=== PATIENT | female | born 1960 | race Caucasian/White ===

== ENCOUNTER 2022-11-27 14:49 | Outpatient (CLI) | payer BC, SELFPAY ==
--- NOTE | 2022-11-27 15:11 | XR_ITS ---
WS: [id number] Left foot, 3 views, 11/27/2022 Clinical Data: L FOOT PAIN Comparison: None. Findings: No fractures or dislocations are seen. No bone destruction or erosion is noted. There is osteoarthrit ic spurring and narrowing of the left first MTP joint. The soft tissues are normal. 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
== END 2022-11-27 14:50 | disposition home or self-care (01) ==
PROVIDERS: PCP Nurse Practitioner Family; Visit Provider Nurse Practitioner Family
DX: M19.072 Primary osteoarthritis, left ankle and foot (principal)
CPT/HCPCS: 73630

== ENCOUNTER 2023-03-17 13:36 | Emergency (ER) | payer OTHER, SELFPAY ==
[2023-03-17 13:48] VITALS: BP 135/74; PULSE 81; RESP 18; TEMP 36.8; O2SAT 96; BMI 28.3
--- NOTE | 2023-03-17 14:32 | W.ED.BACK ---
HPI - Back Pain/Injury General: Chief Complaint: Back Pain/Injury Stated Complaint: low back pain/ leg numbness Time Seen by Provider: 03/17/23 14:23 Source: patient Mode of arrival: ambulatory Limitations: no limitations History of Present Illness: Patient is a nice 63-year-old female presents to ED today with complaint of lower back pain that she sustained a few months ago while at work after lifting something heavy. Patient states she has had pain since that incident. 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 claim/injury but for what ever reason this never got filed. She tells me she has continued to have pain worse with sitting for long periods of time and lifting. She is here now stating she went to a different central office operator supervisor who filed the claim. He reports sometimes pain travels down the posterior aspect of bilateral lower extremities. Denies saddle anesthesia or bowel or bladder dysfunction. MD elicited complaint: back pain and back injury Onset (ago): month(s) Timing: constant Severity: moderate Similar Symptoms Previously: No Location: lumbar spine Radiation: left leg below the knee and right leg below the knee Exacerbating factors: lifting Relieving factors: none Associated symptoms: Reports no associated symptoms; Deny abdominal pain or difficulty walking Work related injury: Yes Review of Systems Card: Denies: chest pain Resp: Denies: dyspnea GI: Denies: abdominal pain Musc: Reports: back pain; Denies: neck pain, extremity pain, extremity swelling, joint pain or joint swelling Skin/Breast: Denies: rash Neuro: Denies: headache(s), numbness in extremities, weakness in extremities, sensory changes or difficulty walking Physical Exam Const: COMMON NORMALS: no acute distress, average body habitus, patient oriented x3, no limitations, healthy appearing, alert and well nourished GI: COMMON NORMALS: Normal to inspection, nondistended, normoactive bowel sounds present, Soft to palpation and non-tender PALPATION: Yes Soft to palpation : COMMON NORMALS: Yes no CVA tenderness BLADDER/KIDNEY EXAM: Yes no CVA tenderness Back/Pelvis: COMMON NORMALS: no CVA tenderness THORACIC SPINE/UPPER BACK: Yes normal to inspection, Yes thoracic ROM normal, No thoracic spinal tenderness, No paraspinal muscle tenderness and No paraspinal muscle spasm LUMBAR SPINE/LOWER BACK: Yes normal to inspection, Yes lumbar ROM normal, Yes lumbar spinal tenderness, No paraspinal muscle tenderness, No paraspinal muscle spasm and Yes straight leg raise negative bilaterally PELVIS: Yes buttocks normal SACROILIAC JOINTS: Yes SI joints normal SACRUM: no tenderness COCCYX: no tenderness Extremity: COMMON NORMALS: normal to inspection GENERAL: Yes normal exam except as noted Neuro: COMMON NORMALS: patient oriented x3, moves all extremities, no focal motor deficits, no sensory deficits noted and gait normal SENSORIUM/ORIENTATION: Yes alert Course Vital Signs: Vital signs: Vital Signs Temperature 98.2 F 03/17/23 13:48 Pulse Rate 81 03/17/23 15:47 Respiratory Rate 18 03/17/23 15:47 Blood Pressure 135/74 03/17/23 13:48 Pulse Oximetry 97 03/17/23 15:47 Oxygen Delivery Me thod Room Air 03/17/23 13:48 MDM - Back Pain/Injury Medical Decision Making XR negative. Worker's Comp paperwork filed. She can follow up with them for further evaluation/treatment. Nothing emergent today. Discharge Plan Discharge Patient Disposition: Home Clinical Impression: Low back pain Qualifiers: Chronicity: chronic Back pain laterality: midline Sciatica presence: with sciatica Sciatica laterality: bilateral sciatica Qualified Code(s): M54.41 - Lumbago with sciatica, right side Condition: Stable Discharge Orders: Discharge ED (Routine); Ordered 03/17/23 Ordered By: Dorita Oretga Referrals: Alyssia Paiz APN [Primary Care Provider] - Activity Restrictions/Additional Instructions: As we discussed we will have you follow-up with Worker's Comp. for further evaluation. Coding Level of Care Code ED Showroom Sales Assistant for Niru Hester
--- NOTE | 2023-03-17 14:43 | XR_ITS ---
WS: [id number] Exam: XR lumbar spine 2-3V* [id number] Date/Time of Exam: 03/17/2023 3:15 PM Reason For Exam: back injury/pain No fracture or dislocation noted. Facet arthropathy at L4-5 and L5-S1. Disc spaces are relatively wel l-maintained. Remaining posterior elements are intact. Osteopenia. IMPRESSION: 1. Degenerative change and osteopenia. 2. No fracture or malalignment.
[2023-03-17 15:47] VITALS: PULSE 81; RESP 18; O2SAT 97
== END 2023-03-17 15:49 | disposition home or self-care (01) ==
PROVIDERS: Emergency Provider Physician Assistant; PCP Nurse Practitioner Family
DX: M54.41 Lumbago with sciatica, right side (principal)
CPT/HCPCS: 72100; 99283

== ENCOUNTER 2025-07-07 12:38 | Emergency (ER) | payer OTHER, SELFPAY ==
--- OUTSIDE RECORDS SUMMARY | 2025-04-18 03:30 | XMS_ITS ---
Author Organization [facility] Address [address] [place] [address] Care Team Providers Care Sandwich Machine Operator Name Role Phone Nain Paiz Primary Care Provider Jr Snell [phone] NAIN PAIZ Unavailable Unavailable Encounters Encounter Location Date Provider Diagnosis [facility] [address] [address] 04/18/2025 Jr Snell Plan Of Treatment Next Appt Details Provider Name:Nain Paiz, 07/17/2025 10:40:00 AM, [address] [facility], [address], [address], Provider Name:Carlee Meeks, 07/24/2025 01:15:00 PM, [address] [place], [address], Progress Notes * ARIC RÍOS RDOB:1960 ([age] yo F)Acc No.[id number]:04/18/2025 Patient: ARIC ZHAO Tosin Provider: Mauricio Snell MD :1960 A ge:65 Y S ex:Female Date:04/18/2025 Address: [address] [place], [place] [id number] Pcp:Nain Paiz Check In:09:11 AM CSTCheck O ut:09:51 AM PHOTOGRAVURE PRESS OPERATOR Billing Information: * Procedure Codes: * Electronic signature of Bruce Snell MD on 07/07/2025 at 12:56 PM PHOTOGRAVURE PRESS OPERATOR Sign off status: Pending * Provider: Mauricio Snell MD Date: 1 Generated for Marie justice/Liza/Dudley on: 1 09/07/2024 12:56 PM PHOTOGRAVURE PRESS OPERATOR
--- OUTSIDE RECORDS SUMMARY | 2025-05-14 09:00 | XMS_ITS ---
Author Organization [facility] Address [address] [place] [address] Care Team Providers Care Atmospheric Technician Name Role Phone Nain Paiz Primary Care Provider Jr Snell [phone] NAIN PAIZ Unavailable Unavailable Encounters Encounter Location Date Provider Diagnosis [facility] [address] [place] [address] 05/14/2025 Jr Snell Plan Of Treatment Next Appt Details Provider Name:Nain Paiz, 07/17/2025 10:40:00 AM, [address] [facility], [address], [address], Provider Name:Carlee Meeks, 07/24/2025 01:15:00 PM, [address] [place], [address], Progress Notes * ARIC RÍOS RDOB:1960 ([age] yo F)Acc No.[id number]:05/14/2025 Patient: ARIC ZHAO Tosin Provider: Mauricio Snell MD :1960 A ge:65 Y S ex:Female Date:05/14/2025 Address: [address] [place], [place] [id number] Pcp:Nain Paiz Check In:02:53 PM BABY SITTER Billing Information: * Procedure Codes: * Electronic signature of Bruce Snell MD on 07/07/2025 at 12:57 PM BABY SITTER Sign off status: Pending * Provider: Mauricio Snell MD Date: 1 Generated for Marie justice/Liza/Dudley on: 1 09/07/2024 12:57 PM BABY SITTER
--- OUTSIDE RECORDS SUMMARY | 2025-05-22 07:00 | XMS_ITS ---
Author Organization [facility] Address [address] [place] [address] Care Team Providers Care Instructor Programmable Controllers Name Role Phone Nain Paiz Primary Care Provider [phone] Jr Snell [phone] NAIN PAIZ Unavailable Unavailable Encounters Encounter Location Date Provider Diagnosis [facility] [address] [place] [address] 05/22/2025 Jr Snell Plan Of Treatment Next Appt Details Provider Name:Nain Paiz, 07/17/2025 10:40:00 AM, [address] [facility], [address], [address], Provider Name:Carlee Meeks, 07/24/2025 01:15:00 PM, [address] [place], [address], Progress Notes * ARIC RÍOS RDOB:1960 ([age] yo F)Acc No.[id number]:05/22/2025 Patient: ARIC ZHAO Tosin Provider: Mauricio Snell MD :1960 A ge:65 Y S ex:Female Date:05/22/2025 Address: [address] [place], [place] [id number] Pcp:Nain Paiz Check In:12:36 PM WRAPPER DIPPER Billing Information: * Procedure Codes: * Electronic signature of Bruce Snell MD on 07/07/2025 at 12:56 PM WRAPPER DIPPER Sign off status: Pending * Provider: Mauricio Snell MD Date: 1 07/22/2024 Generated for Marie justice/Liza/Dudley on: 09/07/2024 12:56 PM WRAPPER DIPPER
[2025-07-07 12:35] VITALS: BP 150/101; PULSE 75; RESP 16; TEMP 36.6; O2SAT 97; BMI 31.7
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
--- OUTSIDE RECORDS SUMMARY | 2025-07-07 12:57 | XMS_ITS | Patient Health Record ---
Author Organization [facility] Address [address] [place] [address] Care Team Providers Care Sash Assembler Name Role Phone Alyssia Paiz Primary Care Provider Alis Jr Unavailable [phone] ALYSSIA PAIZ Unavailable Unavailable Rob Mcmillan Unavailable [phone] Mickey Wong Unavailable [phone] Eve Howe Unavailable [phone] Allergies Allergen (clinical drug ingredient) Drug/Non Drug Allergy documented on EMR Reaction Allergy Type Onset Date Status azithromycin Azithromycin vomitting, headache Drug Allergy Active erythromycin Erythromycin Unknown Drug Allergy A ctive Keflex Unknown Drug Allergy Active acetaminophen / oxycodone Percocet Unknown Drug Allergy Active tramadol traMADol HCl Unknown Drug Allergy Acti ve tapentadol Nucynta Unknown Drug Allergy Active doxycycline Doxycycline Unknown Drug Allergy Act sruthi hydrocodone Hydrocodone Unknown Drug Allergy Act sruthi ketorolac Ketorolac Unknown Drug Allergy Active oxycodone Oxycodone Unknown Drug Allergy Active Substance with penicillin structure and antibacterial mechanism of action (substance) Penicillins Rash, Airways swell and close Drug Allergy Active Substance with sulfonamide structure and antibacterial mechanism of action (substance) Sulfa Antibiotics rash, nausea Drug Allergy Active Results Component Value Reference Range Flag Notes MRI Lumbar Spine w/o [id number] Reviewed date:06/05/2025 11:17:03 AM Interpretation: Performing Lab: Notes/Report: [id number] Schedule Confirmation Reviewed date:06/05/2025 11:17:03 AM Interpretation: Performing Lab: Notes/Report: Echo Complete [id number] Reviewed date:04/27/2025 10:27:32 AM Interpretation: Performing Lab: Notes/Report: Cardiopulmonary Services Name: ARIC ROLAND Study Date: 04/18/2025 : 1960 Patient Location: [facility] Age: 65 yrs Gender: Female Height: 64 in Weight: 204 lb HR: 67 BSA: 2.0 m2 Reason For Study: CHF,HTN Hrt disease, swelling Interpretation Summary The left ventricle is normal in size. There is normal left ventricular wall thickness. Left Ventricular Function is estimated to be 60-65%. There is trace mitral regurgitation. There is trace tricuspid regurgitation. Mild pulmonic valvular regurgitation. Recommendations Continue present medication. Will continue to follow regularly. Left Ventricle The left ventricle is normal in size. There is normal left ventricular wall thickness. Left Ventricular Function is estimated to be 60-65%. Right Ventricle The right ventricle is normal size. Atria The left atrial size is normal. Right atrial size is normal. Great Vessels The aortic root is normal size. Pericardium/Pleural There is no pericardial effusion. There is no pleural effusion. Mitral Valve There is trace mitral regurgitation. Aortic Valve The aortic valve is normal in structure and function. Tricuspid Valve There is trace tricuspid regurgitation. Pulmonic Valve Mild pulmonic valvular regurgitation. MMode/2D Measurements & Calculations RVDd: 3.0 cm LVIDd: 4.0 cm FS: 31.5 % IVSd: 1.1 cm LVIDs: 2.7 cm EDV(Teich): 70.3 ml LVPWd: 1.3 cm ESV(Teich): 28.1 ml EF(Teich): 60.0 % Ao root diam: 3.0 cm asc Aorta Diam: 3.4 cm LVOT diam: 2.0 cm Ao root area: 7.1 cm2 LVOT area: 3.3 cm2 Time Measurements Aortic HR: 64.2 BPM MM HR: 64.2 BPM Doppler Measurements & Calculations MV E max arturo: 84.2 cm/secMV V2 max: 98.6 cm/sec MV A max arturo: 94.9 cm/secMV max P.9 mmHg MV dec slope: 373.7 cm/sec2 MV E/A: 0.89 MV V2 mean: 63.3 cm/sec MV dec time: 0.23 sec MV mean P.8 mmHg MV V2 VTI: 33.3 cm MVA(VTI): 2.2 cm2 Ao V2 max: 143.6 cm/sec LV V1 max P.1 mmHg CO(LVOT): 4.6 l/min Ao max P.2 mmHg LV V1 mean P.0 mmHg SV(LVOT): 71.8 ml Ao V2 mean: 94.7 cm/sec LV V1 max: 101.7 cm/sec Ao mean P.2 mmHg LV V1 mean: 62.5 cm/sec Ao V2 VTI: 32.4 cm LV V1 VTI: 21.9 cm LINO(I,D): 2.2 cm2 LINO(V,D): 2.3 cm2 PA V2 max: 97.1 cm/sec PI end-d arturo: 135.0 cm/sec TR max arturo: 217.0 cm/sec PA max P.8 mmHg TR max P.8 mmHg RVSP(TR): 28.8 mmHg RAP systole: 10.0 mmHg Ordering Physician: Jr Snell Referring Physician: Jr Snell Performed By: Shayan Rivera zzzCT Cardiac Scoring Diagno stic RAD Reviewed date:06/08/2025 01:09:51 PM Interpretation: Performing Lab: Notes/Report: See Below For Report CT Cardiac Scoring Diagnostic RAD Read See Below For Report Schedule Confirmation Reviewed date:06/08/2025 01:09:51 PM Interpretation: Performing Lab: Notes/Report: CT Cardiac Scoring Diagnostic zzzCT Cardiac Scoring Diagno stic RAD Reviewed date:06/08/2025 01:09:59 PM Interpretation: Performing Lab: Notes/Report: [id number] Schedule Confirmation Reviewed date:06/08/2025 01:09:51 PM Interpretation: Performing Lab: Notes/Report: CT Cardiac Scoring Diagnostic CT Cardiac Scoring Diagnosti [id number] Reviewed date:06/08/2025 01:09:51 PM Interpretation: Performing Lab: Notes/Report: See Below For Report CT Cardiac Scoring Diagnostic Diagnosis Description: Mixed hyperlipidemia Read See Below For Report Mammogram Screening Digital Breast Tomosynthesis, bilateral - [id number] Reviewed date:11/16/2024 10:32:53 AM Interpretation:Negative Performing Lab: Notes/Report: Negative Echo Complete [id number] Reviewed date:04/27/2025 10:27:41 AM Interpretation: Performing Lab: Notes/Report: ltl=[id number]=iSite CT Cardiac Scoring Diagnosti [id number] Reviewed date:06/08/2025 01:09:59 PM Interpretation: Performing Lab: Notes/Report: ilb=[id number]&org=iSite Holter 7 day-[id number] Reviewed date:04/11/2025 04:17:33 PM Interpretation: Performing Lab: Notes/Report: Holter 7 day-[id number] Reviewed date:04/11/2025 04:17:33 PM Interpretation: Performing Lab: Notes/Report: Holter 7 day-[id number] Reviewed date:04/11/2025 04:17:33 PM Interpretation: Performing Lab: Notes/Report: Stress Test, [id number] Reviewed date:04/26/2025 07:56:34 AM Interpretation: Performing Lab: Notes/Report: Echo Complete [id number] Reviewed date:04/11/2025 02:34:51 PM Interpretation: Performing Lab: Notes/Report: Thyroid Stimulating Hormone (TSH) 54335 Reviewed date:04/05/2025 01:36:16 PM Interpretation:Normal Performing Lab: Notes/Report: Diagnosis Description: Hypothyroidism, unspecified TSH .949 .358-3.740 MlU/ML Lipid Panel Reflex DLDL 8006 1, 80851 Reviewed date:04/05/2025 01:36:16 PM Interpretation:High Performing Lab: Notes/Report: Diagnosis Description: Essential (primary) hypertension Trig 182 NA 5-9 yr 32-105 Very high >=500 High 200-499 15-19 yr 37-148 0-4 yr 34-112 0-4 yr 22-99 Classification Guidelines:Triglycerid es 10-14 yr 37-131 Children: Male Adults: >20yrs 15-19 yr 39-132 5-9 yr 30-101 10-14 yr 32-125 Children: Female Borderline High 150-199 Desirable <150 Chol 278 <=200 MG/DL HI HDL 59 39-96 MG/DL 5-9y 38-75 >=20y 40-59 >=20y 40-59 15-19y 30-63 5-9y 36-73 Reference Ranges:HDL Female: Male: 10-14y 37-70 10-14y 37-74 15-19y 35-74 CH/HDL 4.7 0.0-4.9 RATIO LDL 183 0-130 MG/DL HI LDL result is inaccurate , if Trig is >400 mg/dl. See DLDL result. Hemoglobin A1c 15101 Reviewed date:04/05/2025 01:36:16 PM Interpretation:Normal Performing Lab: Notes/Report: Diagnosis Description: Other assisted (current) drug therapy Hgb A1c 5.5 3.8-6.4 % Interpretation Of Hgb A1c: 4.5-6.2 % nondiabetics. >7.0 % diabetics. EAG 111 NA Estimated Aver age Glucose(EAG). Comprehensive Met[facility] Pane [facility] ([facility]) 51921 Reviewed date:04/05/2025 01:36:16 PM Interpretation:Abnormal Performing Lab: Notes/Report: Diagnosis Description: Essential (primary) hypertension Glucose Serum 85 71-110 MG/DL Testing p erformed at [facility], [address] [place] [address] [place] [address]. CLIA ID#: [id number] BUN 18 7-21 MG/DL Creat .91 .51-1.17 MG/DL S-ebcqsi-u-benzoquino ne imine (NAPQI) is a metabolite of acetaminophen, NAPQI concentrations of apparoximately 10 mg/L correlation to toxic levels of acetaminophen demonstrates a greater than or equil to 10% change in results. NAPQI concentrations greater than this may lead to falsely depressed results for patient samples. Use of this assay is not recommended for patients undergoing treatment with phenindione, due to the potential for falsely depressed results. GFR 70.6 NA Calculation pe rformed from GFR calculator provided by the [employer] Kid[employer]. Glomerular Filtration rate(GRF) is the best overall index of kidney function. Normal GFR varies according to age,sex, body size, and declines with age. The National Kidney Foundation recommends using the CKD-EPI Creatinine Equation(2020) to estimate GFR. BUN/Creat Ratio 19.8 12.0-20.0 % Total Protein 7.0 5.8-8.0 G/DL Albumin 4.4 3.2-4.8 G/DL Globulin 2.6 2.3-3.5 G/DL Alb/Glob 1.7 0.8-2.2 Calcium 9.4 8.7-10.4 MG/DL Sodium 138 136-145 MMOL/L Potassium 4.6 3.5-5.1 MMOL/L Chloride 103 98-107 MMOL/L CO2 24.6 20.0-31.0 MMOL/L Anion Gap 15 5-15 Alk Phos 125 46-116 HI Bili Total .5 .3-1.2 MG/DL Use of this assay is not recommended for patients undergoing treatment with eltrombopag due to the potential for falsely elevated results. AST/SGOT 19 15-37 UNIT/L ALT/SGPT 16 12-78 UNIT/L Osmo Serum,Calculated 287 280-300 MOSM/KG CBC w\ Auto Diff 35170 Reviewed date:04/05/2025 01:36:16 PM Interpretation: Performing Lab: Notes/Report: Diagnosis Description: Essential (primary) hypertension WBC 6.5 4.5-11.0 X10'3 RBC 4.20 4.00-5.20 X10'6 Hgb 12.0 12.0-16.0 G/DL Hct 38.1 36.0-46.0 % MCV 90.7 80.0-100.0 FL MCH 28.6 27.0-31.0 PG MCHC 31.5 31.0-37.0 G/DL Platelet 413 150-400 X10'3 HI RDW-SD 45.6 35.0-49.0 FL RDW-CV 13.5 12.2-15.6 % MPV 9.4 9.2-12.0 FL Neutro Auto% 47.6 40.0-70.0 % Lymph Auto% 36.8 22.0-44.0 % [place] Auto% 10.1 3.0-7.0 % HI Eos Auto% 4.3 2.0-4.0 % HI Baso Auto% 0.9 0.0-1.0 % Imm Gran% .3 .0-.4 % Neutro Abs 3.11 .80-7.70 Absolute Neutrophil Count 3110 NA Lymph Abs 2.40 .10-4.10 [place] Abs .66 .20-1.00 Eos Abs .28 .00-.40 Baso Abs .06 .00-.20 Imm Gran Abs .02 .00-.10 NRBC# .00 .00-.20 X10'3 NRBC% .00 .00-.20 /100 intact WBC's Fluoro Needle For Placement - Spine [id number] Reviewed date:07/18/2024 04:23:17 PM Interpretation: Performing Lab: Notes/Report: Schedule Confirmation Reviewed date:04/27/2025 10:25:26 AM Interpretation: Performing Lab: Notes/Report: CT Cardiac Scoring Diagnostic Electrocardiogram (EKG) - 93 000 Reviewed date:04/11/2025 04:04:08 PM Interpretation: Performing Lab: Notes/Report: Vitamin D Total (B) 21152 Reviewed date:11/09/2024 12:59:58 PM Interpretation: Performing Lab: Notes/Report: Diagnosis Description: Other assisted (current) drug therapy Vitamin D Total 81.8 30.0-100.0 ng/mL Insufficiency: 20??? < 30 ng/mL Deficiency: < 20 ng/mL Sufficiency: 30???100 ng/mL Performed on the Siemens MyDocllDelphix IM Analyzer Vitamin B12 (B) 63462 Reviewed date:11/09/2024 12:59:31 PM Interpretation: Performing Lab: Notes/Report: Diagnosis Description: Other assisted (current) drug therapy KanhdmtJ34 >1999 211-911 pg/mL HI Thyroid Stimulating Hormone (TSH) 51302 Reviewed date:11/09/2024 12:58:01 PM Interpretation: Performing Lab: Notes/Report: Diagnosis Description: Hypothyroidism, unspecified TSH 1.893 .358-3.740 MlU/ML Lipid Panel Reflex DLDL 8006 1, 42131 Reviewed date:11/09/2024 12:59:18 PM Interpretation: Performing Lab: Notes/Report: Diagnosis Description: Mixed hyperlipidemia Trig 155 NA High 200-499 0-4 yr 22-99 Children: Male 10-14 yr 32-125 Adults: >20yrs 5-9 yr 30-101 5-9 yr 32-105 Children: Female 15-19 yr 37-148 Borderline High 150-199 Classification Guidelines:Triglycerid es Very high >=500 0-4 yr 34-112 Desirable <150 10-14 yr 37-131 15-19 yr 39-132 Chol 292 <=200 MG/DL HI HDL 61 39-96 MG/DL Male: >=20y 40-59 Female: 15-19y 35-74 Reference Ranges:HDL 10-14y 37-74 5-9y 38-75 5-9y 36-73 >=20y 40-59 15-19y 30-63 10-14y 37-70 CH/HDL 4.8 0.0-4.9 RATIO LDL 200 0-130 MG/DL HI LDL result is inaccurate , if Trig is >400 mg/dl. See DLDL result. 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 >7.0 % diabetics. EAG 108 NA Estimated Aver age Glucose(EAG). Comprehensive Metabolic Pane l ([facility]) 95202 Reviewed date:11/09/2024 12:58:35 PM Interpretation: Performing Lab: Notes/Report: Diagnosis Description: Essential (primary) hypertension Glucose Serum 86 71-110 MG/DL Testing p erformed at [address] [place] [address]. CLIA ID#: [id number] BUN 14 7-21 MG/DL Creat .92 .51-1.17 MG/DL Use of this assay is not recommended for patients undergoing treatment with phenindione, due to the potential for falsely depressed results. C-droxtl-q-benzoquino ne imine (NAPQI) is a metabolite of acetaminophen, NAPQI concentrations of apparoximately 10 mg/L correlation to toxic levels of acetaminophen demonstrates a greater than or equil to 10% change in results. NAPQI concentrations greater than this may lead to falsely depressed results for patient samples. GFR 70.6 NA Calculation pe rformed from GFR calculator provided by the National [employer]. Glomerular Filtration rate(GRF) is the best overall index of kidney function. Normal GFR varies according to age,sex, body size, and declines with age. The National Kidney Foundation recommends using the CKD-EPI Creatinine Equation(2020) to estimate GFR. BUN/Creat Ratio 15.2 12.0-20.0 % Total Protein 6.5 5.8-8.0 G/DL Albumin 4.2 3.2-4.8 G/DL Globulin 2.3 2.3-3.5 G/DL Alb/Glob 1.8 0.8-2.2 Calcium 8.9 8.7-10.4 MG/DL Sodium 142 136-145 MMOL/L Potassium 4.4 3.5-5.1 MMOL/L Chloride 108 98-107 MMOL/L HI CO2 26.0 20.0-31.0 MMOL/L Anion Gap 12 5-15 Alk Phos 154 46-116 HI Bili Total .5 .3-1.2 MG/DL Use of this assay is not recommended for patients undergoing treatment with eltrombopag due to the potential for falsely elevated results. AST/SGOT 16 15-37 UNIT/L ALT/SGPT 14 12-78 UNIT/L Osmo Serum,Calculated 294 280-300 MOSM/KG CBC w\ Auto Diff 21533 Reviewed date:11/09/2024 12:59:47 PM Interpretation: Performing Lab: Notes/Report: Diagnosis Description: Essential (primary) hypertension WBC 5.8 4.5-11.0 X10'3 RBC 3.92 4.00-5.20 X10'6 LOW Hgb 11.3 12.0-16.0 G/DL LOW Hct 36.6 36.0-46.0 % MCV 93.4 80.0-100.0 FL MCH 28.8 27.0-31.0 PG MCHC 30.9 31.0-37.0 G/DL LOW Platelet 439 150-400 X10'3 HI RDW-SD 47.2 35.0-49.0 FL RDW-CV 13.8 12.2-15.6 % MPV 9.4 9.2-12.0 FL Neutro Auto% 45.3 40.0-70.0 % Lymph Auto% 39.9 22.0-44.0 % [place] Auto% 10.8 3.0-7.0 % HI Eos Auto% 3.3 2.0-4.0 % Baso Auto% 0.5 0.0-1.0 % Imm Gran% .2 .0-.4 % Neutro Abs 2.63 .80-7.70 Absolute Neutrophil Count 2630 NA Lymph Abs 2.32 .10-4.10 [place] Abs .63 .20-1.00 Eos Abs .19 .00-.40 Baso Abs .03 .00-.20 Imm Gran Abs .01 .00-.10 NRBC# .00 .00-.20 X10'3 NRBC% .00 .00-.20 /100 intact WBC's Schedule Confirmation Reviewed date:06/05/2025 11:17:03 AM Interpretation: Performing Lab: Notes/Report: Schedule Confirmation Reviewed date:06/05/2025 11:17:03 AM Interpretation: Performing Lab: Notes/Report: MRI Lumbar Spine w/o Cont IMH MRI Lumbar Spine w/o Con [id number] Reviewed date:06/05/2025 11:17:03 AM Interpretation: Performing Lab: Notes/Report: See Below For Report MRI Lumbar Spine w/o Cont Diagnosis Description: Spondylolisthesis, lumbar region Read See Below For Report Schedule Confirmation Reviewed date:06/05/2025 11:17:03 AM Interpretation: Performing Lab: Notes/Report: MRI Lumbar Spine w/o Cont Thyroid Stimulating Hormone (TSH) 35219 Reviewed date:08/29/2024 03:32:09 PM Interpretation: Performing Lab: Notes/Report: Diagnosis Description: Hypothyroidism, unspecified TSH .426 .358-3.740 MlU/ML NM Lexiscan Cardiolite-[id number] Reviewed date:06/08/2025 01:08:34 PM Interpretation: Performing Lab: Notes/Report: djf=[id number]&org=iSite NM Lexiscan Cardiolite-[id number] Reviewed date:06/08/2025 01:08:27 PM Interpretation: Performing Lab: Notes/Report: See Below For Report NM Lexiscan Cardiolite Read See Below For Report NM Lexiscan Cardiolite-[id number] Reviewed date:05/17/2025 08:27:12 AM Interpretation: Performing Lab: Notes/Report: Thyroid Stimulating Hormone (TSH) 41042 Reviewed date:01/05/2025 09:13:55 AM Interpretation: Performing Lab: Notes/Report: Diagnosis Description: Hypothyroidism, unspecified TSH 4.003 .358-3.740 MlU/ML HI Lipid Panel Reflex DLDL 8006 1, 25283 Reviewed date:01/05/2025 09:13:43 AM Interpretation: Performing Lab: Notes/Report: Diagnosis Description: Essential (primary) hypertension Trig 156 NA 0-4 yr 34-112 Children: Female Classification Guidelines:Triglycerid es Children: Male Very high >=500 10-14 yr 37-131 5-9 yr 30-101 0-4 yr 22-99 5-9 yr 32-105 Adults: >20yrs Desirable <150 15-19 yr 39-132 15-19 yr 37-148 10-14 yr 32-125 High 200-499 Borderline High 150-199 Chol 244 <=200 MG/DL HI HDL 65 39-96 MG/DL 15-19y 35-74 15-19y 30-63 >=20y 40-59 10-14y 37-74 Female: >=20y 40-59 Reference Ranges:HDL 10-14y 37-70 Male: 5-9y 36-73 5-9y 38-75 CH/HDL 3.8 0.0-4.9 RATIO LDL 148 0-130 MG/DL HI LDL result is inaccurate , if Trig is >400 mg/dl. See DLDL result. 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 >7.0 % diabetics. EAG 108 NA Estimated Aver age Glucose(EAG). Comprehensive Metabolic Pane l ([facility]) 05734 Reviewed date:01/05/2025 09:13:12 AM Interpretation: Performing Lab: Notes/Report: Diagnosis Description: Essential (primary) hypertension Glucose Serum 101 71-110 MG/DL Testing p erformed at [facility], [address] [place] [address] [place] [address]. CLIA ID#: [id number] BUN 16 7-21 MG/DL Creat .90 .51-1.17 MG/DL Use of this assay is not recommended for patients undergoing treatment with phenindione, due to the potential for falsely depressed results. I-daogyh-t-benzoquino ne imine (NAPQI) is a metabolite of acetaminophen, NAPQI concentrations of apparoximately 10 mg/L correlation to toxic levels of acetaminophen demonstrates a greater than or equil to 10% change in results. NAPQI concentrations greater than this may lead to falsely depressed results for patient samples. GFR 72.0 NA Calculation pe rformed from GFR calculator provided by the National Kidney Foundation. Glomerular Filtration rate(GRF) is the best overall index of kidney function. Normal GFR varies according to age,sex, body size, and declines with age. The National Kidney Foundation recommends using the CKD-EPI Creatinine Equation(2020) to estimate GFR. BUN/Creat Ratio 17.8 12.0-20.0 % Total Protein 6.9 5.8-8.0 G/DL Albumin 4.5 3.2-4.8 G/DL Globulin 2.4 2.3-3.5 G/DL Alb/Glob 1.9 0.8-2.2 Calcium 9.7 8.7-10.4 MG/DL Sodium 141 136-145 MMOL/L Potassium 5.2 3.5-5.1 MMOL/L HI Chloride 106 98-107 MMOL/L CO2 27.0 20.0-31.0 MMOL/L Anion Gap 13 5-15 Alk Phos 142 46-116 HI Bili Total .4 .3-1.2 MG/DL Use of this assay is not recommended for patients undergoing treatment with eltrombopag due to the potential for falsely elevated results. AST/SGOT 17 15-37 UNIT/L ALT/SGPT 18 12-78 UNIT/L Osmo Serum,Calculated 293 280-300 MOSM/KG CBC w\ Auto Diff 89179 Reviewed date:01/05/2025 09:13:25 AM Interpretation: Performing Lab: Notes/Report: Diagnosis Description: Essential (primary) hypertension WBC 7.3 4.5-11.0 X10'3 RBC 4.18 4.00-5.20 X10'6 Hgb 11.9 12.0-16.0 G/DL LOW Hct 37.7 36.0-46.0 % MCV 90.2 80.0-100.0 FL MCH 28.5 27.0-31.0 PG MCHC 31.6 31.0-37.0 G/DL Platelet 468 150-400 X10'3 HI RDW-SD 45.8 35.0-49.0 FL RDW-CV 13.6 12.2-15.6 % MPV 9.3 9.2-12.0 FL Neutro Auto% 48.0 40.0-70.0 % Lymph Auto% 38.7 22.0-44.0 % [place] Auto% 8.2 3.0-7.0 % HI Eos Auto% 4.1 2.0-4.0 % HI Baso Auto% 0.7 0.0-1.0 % Imm Gran% .3 .0-.4 % Neutro Abs 3.49 .80-7.70 Absolute Neutrophil Count 3490 NA Lymph Abs 2.82 .10-4.10 [place] Abs .60 .20-1.00 Eos Abs .30 .00-.40 Baso Abs .05 .00-.20 Imm Gran Abs .02 .00-.10 NRBC# .00 .00-.20 X10'3 NRBC% .00 .00-.20 /100 intact WBC's Reason For Referral Reason Evaluation of a cerv ical spinal cord stimulator Diagnosis 1 Cervical radiculopat hy (M54.12) Diagnosis 2 Chronic pain syndrom e (G89.4) Diagnosis 3 Cervical pain (M54.2 ) Referring Provider First Name Rob Referring Provider Last Name Amador Referring Provider Speciality Neurosurge ry Referred Organization [facility] Referred Provider Mickey Wong Referred Address [address],[place],[address], General Notes Eileen Ruiz 12/17 02:41:45 PM >[facility]. Patient is current and just needs appt Referral Priority Routine Reason Evaluation of a cerv ical spinal cord stimulator Diagnosis 1 Chronic pain syndrom e (G89.4) Diagnosis 2 Cervical radiculopat hy (M54.12) Diagnosis 3 Cervical pain (M54.2 ) Referral Organization [facility] [place] Referring Provider First Name Rob Referring Provider Last Name Amador Referring Provider Speciality Neurosurge wesley Referred Organization [facility] Referred Provider Mickey Wong Referred Address [address] [facility] [facility],[place],[address],[place] Referred Provider Specialty Intervention al Pain Medicine Referral Priority Routine Reason NCV/EMG BLE Diagnosis 1 Bilateral leg parest hesia (R20.2) Diagnosis 2 Pain in left thigh ( M79.652) Diagnosis 3 Pain in right thigh (M79.651) Referral Organization [facility] [place] Referring Provider First Name Rob Referring Provider Last Name Amador Referring Provider Speciality Neurosurge wesley Referred Provider [facility], Physi danny Therapy (Main) Referred Provider Specialty Physical The rapist Referral Priority Routine Reason evaluate and treat w [facility] physical therapy for bilateral lower back/leg pain BIW-TIW x 4-6 weeks Diagnosis 1 Lumbar radiculopathy (M54.16) Diagnosis 2 Dorsalgia (M54.9) Diagnosis 3 Low back pain (M54.5 0) Referral Organization [facility] Referring Provider First Name Rob Referring Provider Last Name Amador Referring Provider Speciality Neurosurge wesley Referred Provider Physical Therapy Liliana murrieta Leverett Referred Provider Specialty Physical The rapist Referral Priority Routine Medications Medication SIG (Take, Route, Frequency, Duration) Notes Start Date End Date Status Airsupra 90-80 MCG/ACT Aerosol Inhalation; Duration: 28 Days Active Pantoprazole Sodium 40 MG Tablet Delayed Release 1 tablet 1/2 to 1 hour before morning meal Orally Once a day; Duration: 90 days 04/09/2025 Active Omeprazole 40 MG Capsule Delayed Release TAKE 1 CAPSULE BY MOUTH ONCE DAILY IN THE MORNING 30 MINUTES BEFORE MEAL Orally Once a day; Duration: 90 days Active Crete 3 1000 MG Capsule 2 caps Orally once a day Active Levothyroxine Sodium 175 MCG Tablet TAKE 1 TABLET BY MOUTH ONCE DAILY IN THE MORNING ON AN EMPTY STOMACH Orally Once a day; Duration: 90 days Active Imitrex 100 MG Tablet 1 tablet at least 2 hours between doses as needed Orally Twice a day Active Gabapentin (Once-Daily) 600 MG Tablet 1 tablet Oral Once a day; Duration: 90 days Active Famotidine 40 MG Tablet 1 tablet Orally Once a day in evening; Duration: 90 days 04/09/2025 Active Escitalopram Oxalate 20 MG Tablet 1 tablet Orally Once a day; Duration: 90 days Active CholestOff 450 MG Tablet 2 tabs Orally once a day Active Vitamin D (Ergocalciferol) 1.25 MG (96651 UT) Capsule TAKE 1 CAPSULE BY MOUTH ONCE A WEEK; Duration: 28 Active SUMAtriptan Succinate 100 MG Tablet TAKE 1 TABLET BY MOUTH ONCE DAILY NEEDED FOR HEADACHE, MAY REPEAT IN 2 HOURS IF HEADACHE PERSISTS. MAX OF 2 TABS DAILY; Duration: 10 days Active Immunizations Vaccine Route Administration Date Status Comme nts DTaP IM Intramuscular 11/26/2022 Administered [facility]: [id number] Patient tolerated well, advised to wait 20 min at clinic Fluarix Quadrivalent Unknown 06/16/2018 Administered Flucelvax Trivalent, Syringe 0.5 mL, PF Unknown 06/06/2024 Refused Social History Tobacco Use: Social History Observation Description Date Details (start date - stop date) Never Smoker NA - NA Social History Depression Screening Social Info Question Answer Notes depression screening findings Findings Negative (0 -4) PHQ-9 Little interest or p sangeetha in doing things Several days Feeling down, depressed, or hopeless Not at all Trouble falling or staying a sleep, or sleeping too much More than half the days Feeling tired or having little energy Nearly sukumar ry day Poor appetite or overeating Nearly every day Feeling bad about yourself, or that you are a failure, or have let yourself or your family down More than half the days Trouble concentrating on thi ngs, such as reading the newspaper or watching television More than half the days Moving or speaking so slowly that other people could have noticed. Or the opposite ? being so fidgety or restless that you have been moving around a lot more than usual Nearly every day Thoughts that you would be b sabine off , or of hurting yourself in some way Not at all Total Score 16 Interpretation Moderately severe depression Drugs/Alcohol: Social Info Question Answer Notes Alcohol Screen (Audit-C) Did you have a drink containing alcohol in the past year? No Points 0 Interpretation Negative Drugs Have you used drugs other than those for medical reasons in the past 12 months? No Tobacco Use: Social Info Question Answer Notes Tobacco Control (Standard) Tobacco use: Nonsmoker Additional Details Category Social Info Options Details Drugs/Alcohol: Do you smoke marijuana? De nies Do you drink alcohol? No Migrated Social History Migrated Social History Alcoholic beverages? - No, Applying for disability? - No, Are you or is there a chance you could be - No, Currently on disability? - No, Drug or substance abuse? - No, Employment type - Employed as, exposure to toxins/poisonous substances at work - No, Intake of calcium and vitamin D - Denies, Involved in any legal proceedings or lawsuits? - No, Marital Status - , Nonprescription drug use? - No, Participation in detoxification or rehabilitation - No, Recreational or illicit drug use - Denies, Smoking - No, Tobacco - Denies, Working currently? - No zzMigrated Social History Tobacco Use: (Tobacco Use/Smoking): Are you a:: never smoker ; Section Notes: Depression screen completed 12/28/2022 score 1 03/16/2022: Depression Screening patient filled out depression screening 0n 10/28/2021 and wrote typically none of these apply info entered into chart on 11/03/2021 03/16/2022: Depression Screening patient filled out depression screening 0n 10/28/2021 and wrote typically none of these apply info entered into chart on 11/03/2021 03/16/2022: Depression Screening patient filled out depression screening 0n 10/28/2021 and wrote typically none of these apply info entered into chart on 11/03/2021 Depression screen completed 12/28/2022 score 1 Depression screen completed 12/28/2022 score 1 Depression screen completed 12/28/2022 score 1 Depression screen completed 12/28/2022 score 1 Depression screen completed 12/28/2022 score 1 Depression screen completed 12/28/2022 score 1 Depression screen completed 12/28/2022 score 1 Depression screen completed 12/28/2022 score 1 Depression screen completed 12/28/2022 score 1 Depression screen completed 12/28/2022 score 1 Depression screen completed 12/28/2022 score 1 Depression screen completed 12/28/2022 score 1 Depression screen completed 12/28/2022 score 1 Depression screen completed 12/28/2022 score 1, PHQ9 11/13/2024 Depression screen completed 12/28/2022 score 1, PHQ9 11/13/2024 Depression screen completed 12/28/2022 score 1, PHQ9 11/13/2024 Depression screen completed 12/28/2022 score 1, PHQ9 11/13/2024 Depression screen completed 12/28/2022 score 1, PHQ9 11/13/2024 Depression screen completed 12/28/2022 score 1, PHQ9 11/13/2024 Depression screen completed 12/28/2022 score 1, PHQ9 11/13/2024 patient filled out depressio n screening 0n 10/28/2021 and wrote typically none of these apply info entered into chart on 11/03/2021 patient filled out depressio n screening 0n 10/28/2021 and wrote typically none of these apply info entered into chart on 11/03/2021 patient filled out depressio n screening 0n 10/28/2021 and wrote typically none of these apply info entered into chart on 11/03/2021 Depression screen completed 12/28/2022 score 1 Depression screen completed 12/28/2022 score 1 Depression screen completed 12/28/2022 score 1, PHQ9 11/13/2024 Depression screen completed 12/28/2022 score 1 Problems Problem Type SNOMED Code ICD Code Onset Dates Problem Status W/U Status Risk Notes Problem Hysterectomy (526253528) Absence of uterus (Z90.710) 025 Active confirmed Problem Hypothyroidism (85900462) Hypothyroidism, unspecified (E03.9) Active confirmed Problem Mixed hyperlipidemia (600641107) Mixed hyperlipidemia (E78.2) Active confirmed Problem Primary insomnia (7980434) Primary insomnia (F51.01) Active confirmed Problem Chronic pain syndrome (910433492) Chronic pain syndrome (G89.4) 024 Active confirmed Problem Hypertensive heart failure (87469141) Hypertensive heart disease with heart failure (I11.0) Active confirmed Problem Irritable bowel syndrome with diarrhea (139188307) Irritable bowel syndrome with diarrhea (K58.0) Active confirmed Problem Lumbosacral spondylosis without myelopathy (46124398) Other spondylosis with radiculopathy, lumbosacral region (M47.27) 024 Active confirmed Problem Degeneration of cervical intervertebral disc (27512366) Other cervical disc degeneration, unspecified cervical region (M50.30) 024 Active confirmed Problem Degeneration of lumbar intervertebral disc (66400444) Other intervertebral disc degeneration, lumbar region (M51.36) 024 Active confirmed Problem Flatulence (271806387) Flatulence (R14.3) Active confirmed Problem Long-term current use of drug therapy (272954268) Other remote computer terminal operator (current) drug therapy (Z79.899) Active confirmed Problem Chronic diastolic heart failure (624802145) Chronic diastolic (congestive) heart failure (I50.32) Active confirmed Problem Hyperglycemia (18462395) Hyperglycemia (R73.9) Active confirmed Problem Cervical radiculopathy (04218333) Cervical radiculopathy (M54.12) Active confirmed Problem Gastroesophageal reflux disease without esophagitis (874010545) Gastroesophageal reflux disease without esophagitis (K21.9) Active confirmed Problem Anxiety (07877589) Anxiety (F41.9) Active confi rmed Problem Lower abdominal pain (29493718) Lower abdominal pain (R10.30) Active confirmed Problem Dyspnea on exertion (06915405) CORNELIUS (dyspnea on exertion) (R06.09) Active confirmed Problem Vitamin D deficiency (44219644) Vitamin D deficiency (E55.9) Active confirmed Problem Hiatal hernia (26844249) Hiatal hernia (K44.9) Active confirmed Problem Lumbar radiculopathy (756425581) Lumbar radiculopathy (M54.16) Active confirmed Problem Lumbar spondylosis (465333664) Lumbar spondylosis (M47.816) Active confirmed Problem Sciatica (03886669) Sciatica of right side (M54.31) Active confirmed Problem Depressive disorder (disorder) (40670916) Depression, unspecified depression type (F32.9) Active confirmed Problem Chest pain (89161267) Chest pain, unspecified type (R07.9) Active confirmed Problem Cervical spondylosis (017412897) Cervical spondylosis (M47.812) Active confirmed Problem Migraine (24918334) Migraine (G43.909) Active c onfirmed Problem Acid reflux (517776187) Acid reflux (K21.9) Active confirmed Problem Hypothyroid (21863138) Hypothyroid (E03.9) Active confirmed Problem Cervical pain (40514802) Cervical pain (M54.2) Active confirmed Problem Sleep apnea (08904435) Sleep apnea (G47.30) Active confirmed Problem Depression (602730940) Other depression (F32.89) Active confirmed Problem Lumbosacral spondylosis without myelopathy (89066784) Osteoarthritis of spine with radiculopathy, lumbar region (M47.26) Active confirmed Problem Benign essential hypertension (3920413) Benign essential hypertension (I10) Active confirmed Problem Acquired spondylolisthesis (213305903) Spondylolisthesis at L4-L5 level (M43.16) Active confirmed Problem Diverticular disease of colon (482579372) Acquired diverticulosis of colon (K57.30) Active confirmed Problem Grief (596893303) Grief (F43.21) Active confirm ed Problem Sciatica (55202652) Low back balwinder n with right-sided sciatica, unspecified back pain laterality, unspecified chronicity (M54.41) Active confirmed Problem Environmental allergy (237787676) Environmental allergies (Z91.09) Active confirmed Problem Intolerance to lactose (finding) (706311697) Lactose intolerance in adult (E73.9) Active confirmed Problem Inflammatory arthritis (3848141) Inflammatory arthritis (M19.90) Active confirmed Problem Localized, primary osteoarthritis of the ankle and/or foot (128532035) Primary osteoarthritis of left foot (M19.072) Active confirmed Problem Altered bowel function (48251440) Change in bowel function (R19.8) Active confirmed Problem Skin sensation disturbance (27289301) Bilateral leg paresthesia (R20.2) Active confirmed Problem Gastroesophageal reflux disease (312247785) Gastroesophageal reflux disease, unspecified whether esophagitis present (K21.9) Active confirmed Problem Lumbosacral radiculopathy (0425230) L-S radiculopathy (M54.17) Active confirmed Problem Lumbosacral spondylosis (475992139) Lumbosacral spondylosis (M47.817) Active confirmed Problem Depressive disorder (disorder) (73602571) Depression, unspecified depression type (F32.A) Active confirmed Vital Signs Heart Rate 74 /min 04/11/2025 Temperature 97.5 degrees Fahrenheit 04/09/2025 Respiratory Rate 18 /min 04/09/2025 Height-cm 162.56 cm 04/11/2025 Oximetry 98 % 04/11/2025 Blood pressure diastolic 82 mm Hg 04/11/2025 Weight-kg 92.08 kg 04/11/2025 Height 64 in 04/11/2025 Blood pressure systolic 124 mm Hg 04/11/2025 Weight 203 lbs 04/11/2025 BMI 34.84 kg/m2 04/11/2025 Procedures Procedure Date Ordered Date Performed Result Body Sit e Epidural, Cervical/ Thoracic , w/ imaging guidance - 20514 07/18/2024 07/18/2024 N/A Epidural, Cervical/ Thoracic , w/ imaging guidance - 81173 10/17/2024 10/17/2024 N/A Encounters Encounter Location Date Provider Diagnosis [facility] [address] [place] [address] 10/17/2024 Mickey Personfft Radiculopathy, cervi danny region M54.12 [facility] [address] [address] 11/13/2024 Alyssia Paiz Lumbar radiculopathy M54.16 ; Hypothyroidism, unspecified E03.9 ; Mixed hyperlipidemia E78.2 ; Other depression F32.89 and Depression screen Z13.31 [facility] [place] [address] [place] [address] 09/21/2024 Rob Mcmillan Cervicalgia M54.2 ; Cervical spondylosis M47.812 ; Spondylolisthesis at L4-L5 level M43.16 and Facet arthropathy, lumbar M47.816 [facility] [address] [place] [address] 08/31/2024 [facility] Depression screen Z13.31 ; Mixed hyperlipidemia E78.2 ; Anxiety F41.9 ; Other depression F32.89 ; Frequent headaches R51.9 ; Gastroesophageal reflux disease without esophagitis K21.9 ; Hypothyroid E03.9 ; Fatigue R53.83 ; Sleep apnea G47.30 and Vitamin D deficiency E55.9 [facility] [address] [place] [address] 08/08/2024 Eve Lively Chronic pain syndrome G89.4 ; Radiculopathy, cervical region M54.12 ; Lumbar radiculopathy M54.16 ; L-S radiculopathy M54.17 ; Lumbar facet arthropathy M47.816 and Lumbosacral spondylosis M47.817 [facility] [address] [address] 04/09/2025 [facility] Heartburn R12 ; Anxi ety F41.9 ; Hypothyroidism, unspecified E03.9 and Gastroesophageal reflux disease, unspecified whether esophagitis present K21.9 [facility] [place] [address] [place] [address] 02/01/2025 Rob Mcmillan Lumbar radiculopathy M54.16 ; Dorsalgia M54.9 and Low back pain M54.50 [facility] [place] [address] [place] [address] 01/16/2025 Rob Mcmillan Lumbar radiculopathy M54.16 ; Spondylolisthesis at L4-L5 level M43.16 ; Lumbar spondylosis M47.816 ; Bilateral leg paresthesia R20.2 ; Pain in right thigh M79.651 and Pain in left thigh M79.652 [facility] [address] [address] 01/11/2025 [facility] Absence of uterus Z90.710 ; Migraine G43.909 ; Hypothyroidism, unspecified E03.9 ; Lumbar radiculopathy M54.16 and Anxiety F41.9 [facility] [place] [address] [address] 01/02/2025 Rob Mcmillan Lumbar radiculopathy M54.16 ; Spondylolisthesis at L4-L5 level M43.16 ; Lumbar spondylosis M47.816 ; Cervical pain M54.2 ; Cervical radiculopathy M54.12 and Chronic pain syndrome G89.4 [facility] [address] [address] 04/02/2025 [facility] Benign essential hypertension I10 ; Hypothyroidism, unspecified E03.9 ; Mixed hyperlipidemia E78.2 and Other assisted (current) drug therapy Z79.899 [facility] [address] [address] 01/04/2025 [facility] Hypothyroidism, unspecified E03.9 ; Benign essential hypertension I10 ; Chronic diastolic (congestive) heart failure I50.32 and Drug therapy continued Z79.899 [facility] [address] [address] 11/07/2024 [facility] Benign essential hypertension I10 ; Mixed hyperlipidemia E78.2 ; Gastroesophageal reflux disease without esophagitis K21.9 ; Other remote computer terminal operator (current) drug therapy Z79.899 ; Vitamin D deficiency E55.9 and Hypothyroid E03.9 [facility] [address] [address] 08/28/2024 [facility] Hypothyroidism, unspecified E03.9 [facility] [address] [place] [address] 04/11/2025 Jr Snell Mixed hyperlipidemia E78.2 ; Other fatigue R53.83 ; Hypothyroid E03.9 ; Chronic diastolic (congestive) heart failure I50.32 ; Hypertensive heart disease with heart failure I11.0 ; Swelling R60.9 ; Palpitations R00.2 ; Dizziness R42 ; Other chest pain R07.89 and SOB (shortness of breath) on exertion R06.02 [facility] [address] [place] [address], [place] [address] 04/18/2025 Jr Snell [facility] [address] [place] [address] 07/18/2024 Mickey Wong Radiculopathy, cervi danny region M54.12 [facility] [address] [place] [address] 12/04/2024 Mickey Wong Chronic pain syndrom e G89.4 ; Radiculopathy, cervical region M54.12 ; L-S radiculopathy M54.17 and Lumbosacral spondylosis M47.817 [facility] [address] [place] [address], [place] [address] 05/14/2025 Jr Snell [facility] [address] [place] [address], [place] [address] 04/27/2025 Jr Snell Other fatigue R53.83 and SVT (supraventricular tachycardia) I47.10 [facility] [address] [place] [address], [place] [address] 05/22/2025 Jr Snell [facility] [address] [place] [address], [place] [address] 05/10/2025 Jr Snell [facility] [address] [place] [address], [place] [address] 04/30/2025 Jr Snell [facility] [address] [place] [address], [place] [address] 04/19/2025 Jr Snell [facility] [address] [place] [address] 10/17/2024 [facility] Screening mammogram, encounter for Z12.31 [facility] [address] [place] [address], [place] [address] 05/23/2025 Jr Snell [facility] [address] [place] [address] 05/15/2025 Jr Snell Other chest pain R07 .89 ; Abnormal stress test R94.39 ; Dizziness R42 ; Chronic diastolic (congestive) heart failure I50.32 ; SVT (supraventricular tachycardia) I47.10 ; Swelling R60.9 ; SOB (shortness of breath) on exertion R06.02 and Fatigue R53.83 Assessments Encounter Date Diagnosis (ICD Code) Assessment Notes Treatment Notes Treatment Clinical Notes Section Notes 07/18/2024 Radiculopathy, cervical region (ICD-10 - M54.12) 08/08/2024 Chronic pain syndrome (ICD-10 - G89.4) I had a nice discussion with the patient in regard to her chronic pain complaints. Patient reports that she is doing reasonably well at this time with help of her occasional interventional therapy use. Patient reports her most recent EITAN performed in June was greatly beneficial by reducing her chronic pain by least 80%. Patient desires to repeat this procedure every 3 months as she has found it to be beneficial to allow her to perform her actives of daily living more functionally. Patient is not currently prescribed any medication through our clinic. Patient will return to clinic after her procedure to continue assessment and evaluation. RECOMMEND THERAPEUTIC CERVICAL EPIDURAL STEROID INJECTION, levels C7-T1 The patient reports overall 50% improvement in function and decrease in pain for greater than one month from previous diagnostic CATHERINE. The patient also reports improvement in tolerance to activities which generally cause pain. Based on the results of previous diagnostic CATHERINE, a therapeutic CATHERINE is recommended. Expectation from a successful therapeutic epidural steroid injection is at least 50-70% relief of pain from baseline and evidence of improved function for at least six to eight weeks after delivery. The goal of epidural steroid injections is to reduce pain and inflammation, restoring range of motion and, thereby, facilitating progress in more active treatment programs, and avoiding surgery. The procedure and risks were discussed with the patient including but not limited to infection, bleeding, neurological complications, side effects from medications, no change in pain, worsening of pain, or even . We also discussed conservative options, surgical options, and medical management with patient as well. The patient indicates understanding and wishes to proceed with the recommended treatment approach. The patient was given written information about the procedure and all questions were answered. 08/28/2024 Hypothyroidism, unspecified (ICD-10 - E03.9) 08/31/2024 Mixed hyperlipidemia (ICD-10 - E78.2) crestor 08/31/2024 Depression screen (ICD-10 - Z13.31) 09/21/2024 Cervicalgia (ICD-10 - M54.2) 09/21/2024 Cervical spondylosis (ICD-10 - M47.812) She has no new neuro complaints today. She says the cervical injections have improved her quality of life. I recommended she continue with her 3rd scheduled cervical injection next month, stay active and avoid injury. If her pain increases she will call and return for another discussion. The patient is in agreement. 10/17/2024 Screening mammogram, encounter for (ICD-10 - Z12.31) 10/17/2024 Radiculopathy, cervical region (ICD-10 - M54.12) 11/07/2024 Mixed hyperlipidemia (ICD-10 - E78.2) 11/07/2024 Benign essential hypertension (ICD-10 - I10) 11/13/2024 Hypothyroidism, unspecified (ICD-10 - E03.9) levothyroxine 12/04/2024 Chronic pain syndrome (ICD-10 - G89.4) I had a nice visit with the patient today regarding her chronic pain issues. Unfortunately, she didn't get much relief with the most recent EITAN. When we reviewed her last MRI from September of 2023, she had fairly significant cervical stenosis, especially foraminal on that right side. My suspicion is this has progressed to the point where the steroids are no longer effective. I recommended follow up with Dr. Mcmillan and she will see us on a as needed basis. 12/04/2024 Radiculopathy, cervical region (ICD-10 - M54.12) 11/13/2024 Lumbar radiculopathy (ICD-10 - M54.16) dr mcmillan 01/02/2025 Lumbar radiculopathy (ICD-10 - M54.16) 01/02/2025 Spondylolisthesis at L4-L5 level (ICD-10 - M43.16) The patient is experiencing increased low back and right lower extremity pain. The patient says her symptoms have increased since her previous imaging over one year ago. She has been receiving lumbar epidural steroid injections at the pain clinic that she says are no longer working for her. I explained to the patient that there are things in the lumbar spine that can potentially be addressed with surgery. New lumbar imaging is needed for proper assessment and plan of treatment. I will order an MRI of the lumbar spine and see the patient back after the imaging is completed to review the findings. I will make further recommendations at that time.The patient is in agreement. 01/04/2025 Hypothyroidism, unspecified (ICD-10 - E03.9) 01/04/2025 Benign essential hypertension (ICD-10 - I10) 01/11/2025 Migraine (ICD-10 - G43.909) toradol 60 mg im conitnue meds 01/11/2025 Absence of uterus (ICD-10 - Z90.710) 01/16/2025 Lumbar radiculopathy (ICD-10 - M54.16) 01/16/2025 Spondylolisthesis at L4-L5 level (ICD-10 - M43.16) The patient is having bilateral leg pain with numbness and tingling worse in the right leg than the left. States she completed physical therapy with some improvement in symptoms then. States she swims 4 times a week to help with strengthening. I would like to have patient complete a NCV/ME of BLE to get a better idea what may be going on. Patient agrees with this plan. Will see her back once test completed. ROS Reviewed I Kerri Tarango LPN am scribing for, and in the presence of Rob Mcmillan MD. I, Rob Mcmillan, personally performed the services described in this documentation, as scribed by Kerri Tarango LPN in my presence, and it is both accurate and complete. 02/01/2025 Lumbar radiculopathy (ICD-10 - M54.16) The patient's symptoms and clinical findings were reviewed. She states her pain is worse when she twists the right causing pain from her back to her leg with burning sensation and numbness. She is continuing water therapy, and she feels like this helps. Her nerve study of bilateral lower extremities is normal. I do not feel surgery is an option at this time. She will continue water therapy and I will send a referral physical therapy in [place], [place]. The patient is in agreement with referral. Patient will call if pain worsens, or she develops weakness with falls. ROS reviewed I Carmelina Baird RN am scribing for, and in the presence of Rob Mcmillan MD. I, Rob Mcmillan, personally performed the services described in this documentation, as scribed by Carmelina Baird RN in my presence, and it is both accurate and complete. 02/01/2025 Dorsalgia (ICD-10 - M54.9) 04/02/2025 Hypothyroidism, unspecified (ICD-10 - E03.9) 04/02/2025 Benign essential hypertension (ICD-10 - I10) 04/09/2025 Heartburn (ICD-10 - R12) pepcid 04/09/2025 Anxiety (ICD-10 - F41.9) continue meds 04/11/2025 Mixed hyperlipidemia (ICD-10 - E78.2) Obtain a coronary calcium score to assess patient's CAD burden. 04/11/2025 Other fatigue (ICD-10 - R53.83) Holter device was applied today. Patient was instructed on number of days to wear device. Patient was instructed that there device is water resistant. They can wear the device in the shower as long as the device itself does not become submerged in water. There are extra patches in the kit provided dressing changes were reviewed today if needed. The importance of shipping their device back was stressed. Patient will need to replace the device into the box and take this to the nearest [employer] dropbox. We will contact them with results once the report is received. 04/27/2025 Other fatigue (ICD-10 - R53.83) 04/27/2025 SVT (supraventricular tachycardia) (ICD-10 - I47.10) 05/15/2025 Other chest pain (ICD-10 - R07.89) 05/15/2025 Abnormal stress test (ICD-10 - R94.39) 04/11/2025 Hypothyroid (ICD-10 - E03.9) Maintained on levothyroxine. 05/15/2025 Dizziness (ICD-10 - R42) 04/09/2025 Hypothyroidism, unspecified (ICD-10 - E03.9) levothyroxine 04/02/2025 Mixed hyperlipidemia (ICD-10 - E78.2) 02/01/2025 Low back pain (ICD-10 - M54.50) 01/16/2025 Lumbar spondylosis (ICD-10 - M47.816) 01/11/2025 Hypothyroidism, unspecified (ICD-10 - E03.9) levothyroxine 01/04/2025 Chronic diastolic (congestive) heart failure (ICD-10 - I50.32) 01/02/2025 Lumbar spondylosis (ICD-10 - M47.816) 12/04/2024 L-S radiculopathy (ICD-10 - M54.17) 11/13/2024 Mixed hyperlipidemia (ICD-10 - E78.2) omega 3 11/07/2024 Gastroesophageal reflux disease without esophagitis (ICD-10 - K21.9) 09/21/2024 Spondylolisthesis at L4-L5 level (ICD-10 - M43.16) The patient says the back pain seems to have resolved on its own. No new neuro complaints today. ROS reviewed I Steffany Caldera LPN am scribing for, and in the presence of Rob Mcmillan MD. I, Rob Mcmillan, personally performed the services described in this documentation, as scribed by Steffany Caldera LPN in my presence, and it is both accurate and complete. 08/31/2024 Anxiety (ICD-10 - F41.9) xanax 08/08/2024 Radiculopathy, cervical region (ICD-10 - M54.12) 08/08/2024 Lumbar radiculopathy (ICD-10 - M54.16) 08/31/2024 Other depression (ICD-10 - F32.89) lexapro 09/21/2024 Facet arthropathy, lumbar (ICD-10 - M47.816) 11/07/2024 Other assisted (current) drug therapy (ICD-10 - Z79.899) 12/04/2024 Lumbosacral spondylosis (ICD-10 - M47.817) 01/02/2025 Cervical pain (ICD-10 - M54.2) 11/13/2024 Other depression (ICD-10 - F32.89) lexapro 01/16/2025 Bilateral leg paresthesia (ICD-10 - R20.2) 04/02/2025 Other remote computer terminal operator (current) drug therapy (ICD-10 - Z79.899) 04/09/2025 Gastroesophageal reflux disease, unspecified whether esophagitis present (ICD-10 - K21.9) pantoprazole 01/11/2025 Lumbar radiculopathy (ICD-10 - M54.16) t3 gabapentin 05/15/2025 Chronic diastolic (congestive) heart failure (ICD-10 - I50.32) 04/11/2025 Chronic diastolic (congestive) heart failure (ICD-10 - I50.32) 04/11/2025 Hypertensive heart disease with heart failure (ICD-10 - I11.0) 01/02/2025 Cervical radiculopathy (ICD-10 - M54.12) The patient is experiencing increased neck pain. Her last cervical injection with the pain clinic was in October of this year. The patient says she feels the injections are no longer helpful I discussed the patient's previous cervical imaging with the patient. There are subtle findings on the imaging that can cause headaches. As far as her neck pain, I do not think surgery is the right answer. I recommended a referral back to the pain clinic for a cervical spinal cord evaluation. I believe the patient would benefit from a stimulator for the chronic neck pain. I explained the process for the evaluation, trial and placement. Questions were asked and answered to the patient's satisfaction. She states her understanding and is in agreement to the referral to the pain clinic for the SCS evaluation. If a stimulator proves not to be an option for her, she will return for another discussion. ROS reviewed I Steffany Caldera LPN am scribing for, and in the presence of Rob Mcmillan MD. I, Rob Mcmillan, personally performed the services described in this documentation, as scribed by Steffany Caldera LPN in my presence, and it is both accurate and complete. 11/13/2024 Depression screen (ICD-10 - Z13.31) 01/11/2025 Anxiety (ICD-10 - F41.9) alprazolam 01/04/2025 Drug therapy continued (ICD-10 - Z79.899) 01/16/2025 Pain in right thigh (ICD-10 - M79.651) 11/07/2024 Vitamin D deficiency (ICD-10 - E55.9) 05/15/2025 SVT (supraventricular tachycardia) (ICD-10 - I47.10) 08/31/2024 Frequent headaches (ICD-10 - R51.9) sumatriptan 08/08/2024 L-S radiculopathy (ICD-10 - M54.17) 08/31/2024 Gastroesophageal reflux disease without esophagitis (ICD-10 - K21.9) omeprazole 08/08/2024 Lumbar facet arthropathy (ICD-10 - M47.816) 11/07/2024 Hypothyroid (ICD-10 - E03.9) 01/02/2025 Chronic pain syndrome (ICD-10 - G89.4) 01/16/2025 Pain in left thigh (ICD-10 - M79.652) 05/15/2025 Swelling (ICD-10 - R60.9) 04/11/2025 Swelling (ICD-10 - R60.9) 05/15/2025 SOB (shortness of breath) on exertion (ICD-10 - R06.02) 04/11/2025 Palpitations (ICD-10 - R00.2) Obtain 7-day Holter monitor for further evaluation of palpitations. 08/08/2024 Lumbosacral spondylosis (ICD-10 - M47.817) 08/31/2024 Hypothyroid (ICD-10 - E03.9) levothyroxine 08/31/2024 Fatigue (ICD-10 - R53.83) b12 05/15/2025 Fatigue (ICD-10 - R53.83) 04/11/2025 Dizziness (ICD-10 - R42) 04/11/2025 Other chest pain (ICD-10 - R07.89) Obtain GXT. Obtain echo for routine structural evaluation. 08/31/2024 Sleep apnea (ICD-10 - G47.30) c pap 08/31/2024 Vitamin D deficiency (ICD-10 - E55.9) vit d 04/11/2025 SOB (shortness of breath) on exertion (ICD-10 - R06.02) 08/28/2024 Other Venipuncture: Performed by:Jennifer COREA Attempts: x1 Location: RAC Needle gauge:21g Patient tolerated well. 08/31/2024 Other Questions asked and answered; discharged to home. 11/07/2024 Other Venipuncture: Performed by:Jennifer COREA Attempts: x1 Location: RAC Needle gauge: 21g Patient tolerated well. 11/13/2024 Other Questions asked and answered; discharged to home. 12/04/2024 Other Katia Gaytan NCMA, am scribing for Dr. Mickey Wong. I, Dr. Mickey Wong, personally performed the services described in this documentation, as scribed by ERIN Allan , and it is both accurate and complete. 01/04/2025 Other Venipuncture: Performed by: Jennifer COREA Attempts: x1 Location: RAC Needle gauge:22g Patient tolerated well. 01/11/2025 Other Questions asked and answered; discharged to home. 04/02/2025 Other Venipuncture: Performed by: Jennifer COREA Attempts:x1 Location:RAC Needle gauge:22g Patient tolerated well. 04/09/2025 Other Questions asked and answered; discharged to home. 04/11/2025 Other Follow up in 3 months, or sooner if needed. IAnn, am scribing for Jr Snell MD. I, Jr Snell MD, personally performed the services prescribed in this documentation , as scribed by Ann Pineda, and it is both accurate and complete. Plan Of Treatment Pending Test Test Name Order Date Blood Urea Nitrogen (BUN) 31129 09/02/19 24 Creatinine (B) [id number] 09/02/2023 Future Test Test Name Order Date Thyroid Stimulating Hormone (TSH) [id number] 01/11/2025 Next Appt Details Provider Name:Alyssia Paiz, 07/17/2025 10:40:00 AM, [address], [address], Provider Name:Carlee Jeanna, 07/24/2025 01:15:00 PM, [address] [place] [address], [id number], Insurance Providers Payer Name Payer Address Payer Phone Subscriber Number Group Number Insured Name Patient Relationship to Insured Coverage Start Date Coverage End Date [id number] [address] [address] [place] [address] [id number] Abbi Roland Spouse - patient is the spouse of the insured Medications Administered Medication Instructions Date of Administration Dosage Notes DEPO-Medrol 10/28/2021 40 mg NDC: [address]-43 Patient tolerated well, advised to wait at clinic for 20 min dexAMETHasone 10/28/2021 4 mg NDC: 73923-297-28 Patient tolerated well, advised to wait in clinic for 20 min Ketorolac Tromethamine 01/11/2025 [address] [place] [address]-89 pt tolerated well/instructed to wait 20 min Medical (General) History Medical History History ICD Code restless legs thyroid problems asthma ringing in ears glasses seasonal allergies sleep apnea reflux headaches depression measles mumps Chicken Pox Pneumonia Arthritis anemia chronic bladder infections migraines Back Trouble Low Blood Pressure anxiety bronchitis cataracts GERD Hypothyroidism irritable bowel syndrome kidney stones Surgical History Surgery Date(Month/Year) foot surgery 04/2024 Hysterectomy laporoscopy tubal trigger thumb Hospitalization History Reason Date(Month/Year) Heart 01/19/2021
--- OUTSIDE RECORDS SUMMARY | 2025-07-07 12:57 | XMS_ITS | Clinical Summary ---
Author Organization [facility] [address] Address [address] [place] [address] Care Team Providers Care Senior Web Engineer Name Role Phone Unavailable Primary Care Provider Unavailabl e Medications chlorzoxazone (PARAFON FORTE) 500 mg tablet Take half a tablet at bedtime 10 Tablet 03/26/2023 Active predniSONE (DELTASONE) 20 mg tablet Take 1 Tablet (20 mg) by mouth daily with breakfast. 10 Tablet 03/26/2023 Active Social History Tobacco Use Types Packs/Day Years Used Date Smoking Tobacco: Never Assessed Comments Unknown Sex and Gender Information Value Date Recorded Sex Assigned at Not on file Legal Sex Female 12:39 PM [employer] Gender Identity Not on file Sexual Orientation Not on file Plan of Treatment Health Maintenance Due Date Last Done Comments DTAP/TDAP/TD VACCINES (1 - Tdap) 1981 HPV/Cotest (21-29) 1983 CERVICAL CANCER SCREENING 1992 HPV/Cotest (30-65) 1992 PAP SMEAR 1992 BREAST CANCER SCREENING 2002 COLORECTAL SCREENING 2007 Colorectal Cancer Screening 2007 FIT-DNA Q 3 years 2007 FIT/FOBT Q 1 year 2007 Flex Sig/CT Colonography Q 5 years 2007 ZOSTER VACCINE (1 of 2) 2012 INFLUENZA VACCINE (#1) 2025 RSV VACCINE (60+ or ) (1 - 1-dose 75+ series) 2037 Insurance [facility] ACCIDENT REPORTING OFFICE
--- OUTSIDE RECORDS SUMMARY | 2025-07-07 12:57 | XMS_ITS | Patient Health Record ---
Author Organization [facility] Address [address] [facility] [address] [place] [address] Care Team Providers Care Page Makeup System Operator Name Role Phone Harvey Patel [phone] Reason For Referral No Information Plan Of Treatment No Information
[2025-07-07] MEDS: orphenadrine 30 mg/mL Inj 2 mL 60 MG IM (14:38)
== END 2025-07-07 15:16 | disposition home or self-care (01) ==
PROVIDERS: Emergency Provider Physician Assistant; PCP Nurse Practitioner Family
DX: S06.0XAA Concussion with loss of consciousness status unknown, initial encounter (principal); S13.4XXA Sprain of ligaments of cervical spine, initial encounter; V89.2XXA Person injured in unspecified motor-vehicle accident, traffic, initial encounter
CPT/HCPCS: 70450; 72125; 73030; 73630; 96372; 99284; J1100; J2360